=== PATIENT | male | born 1950 | race African-American/Black ===

== ENCOUNTER 2019-09-19 09:35 | Emergency (ER) | payer OTHER, BC ==
[~2019-09-19] VITALS: Ht 177.8 cm; Wt 87.1 kg
[2019-09-19 09:40] VITALS: BP_SYST 135
--- NOTE | 2019-09-19 09:40 | NUR ---
Placed in room 4 . Placed on labor relations director, blood pressure machine and pulse oximeter. To gown for exam. Side rails up. Report given to JANICE Gonzalez and JANICE Adams.
[2019-09-19] MEDS ORDERED: NACL 0.9% 1,000 ML IV ONE (09:42)
--- NOTE | 2019-09-19 09:53 | NUR ---
ER at bedside examining patient.
--- NOTE | 2019-09-19 10:00 | NUR ---
Pt came to ER with c/o of difficulty swallowing, stated food is slow to go down. He has not choked, vomited or had any other complaints at this time
--- NOTE | 2019-09-19 10:20 | NUR ---
Medicated per MD orders. IVF infusing with no s/s of infiltration at this time. Will cont to monitor
--- NOTE | 2019-09-19 10:20 | NUR ---
20 gauge angiocath placed to R AC. Use of asceptic technique. Opsite placed over site. Blood return noted. Blood for lab drawn from site. Flushed with 10 cc of normal saline. No evidence of infiltration noted. Patient tolerated well.
[2019-09-19 10:30] LABS: BASOPHILS # (AUTO) 0.1 K/uL (0.0-0.2); BASOPHILS % (AUTO) 1.2 % (0.0-2.0); EOSINOPHILS # (AUTO) 0.4 K/uL (0.0-0.4); EOSINOPHILS % (AUTO) 7.3 % (0.0-4.0); HEMATOCRIT 32.9 % (36-54); LYMPHOCYTES # (AUTO) 0.8 K/uL (1.0-5.5); LYMPHOCYTES % (AUTO) 16.1 % (20.5-51.5); MEAN CORPUSCULAR HEMOGLOBIN 28 pg (27-31); MEAN CORPUSCULAR HGB CONC 33 % (32-36); MEAN CORPUSCULAR VOLUME 83 fL (79.0-98.0); MONOCYTES # (AUTO) 0.6 K/uL (0.0-1.0); MONOCYTES % (AUTO) 13.3 % (1.7-9.3); NEUTROPHILS % (AUTO) 62.1 % (40.0-70.0); PLATELET COUNT (AUTO) 197 K/uL (130-430); RED BLOOD CELL COUNT(AUTO) 3.97 MIL/uL (4.2-6.2); RED CELL DISTRIBUTION WIDTH 15.9 % (9.0-15.0); WHITE BLOOD COUNT (AUTO) 4.8 K/uL (4.8-10.8)
[2019-09-19 10:39] LABS: BILIRUBIN,URINE NEGATIVE (NEGATIVE); BLOOD, URINE NEGATIVE (NEGATIVE); CLARITY/URINE CLEAR (CLEAR); COLOR,URINE YELLOW (YELLOW); GLUCOSE,URINE NEGATIVE (NEGATIVE); KETONES,URINE NEGATIVE (NEGATIVE); LEUKOCYTE ESTERASE ,URINE TRACE (NEGATIVE); NITRITE, URINE NEGATIVE (NEGATIVE); PROTEIN URINE NEGATIVE (NEGATIVE); UROBILINOGEN,URINE 0.2 (0.2-1.0)
[2019-09-19 10:48] LABS: ANION GAP 7 (5-15); CALCIUM 8.5 mg/dL (8.4-11.0); CHLORIDE 104 mmol/L (98-107); CREATININE 1.21 mg/dL (0.55-1.30); GLUCOSE 86 mg/dL (70-99); POTASSIUM 4.1 mmol/L (3.5-5.1); SODIUM SERUM 139 mmol/L (136-145); UREA NITROGEN, BLOOD 24 mg/dL (8-21)
[2019-09-19 10:55] LABS: ALANINE AMINOTRANSFERASE 27 U/L (12-78); ALBUMIN 3.5 g/dL (3.4-4.8); AMYLASE 90 U/L (0-100); ASPARTATE AMINOTRANSFERASE 25 U/L (10-37); LIPASE 220 U/L (73-393); TOTAL BILIRUBIN 0.3 mg/dL (0.0-1.0)
[2019-09-19 11:07] LABS: BARBITURATE, URINE NEGATIVE (NEG <=200); BENZODIAZEPINE, URINE NEGATIVE (NEG <=150); CANNABINOID, URINE NEGATIVE (NEG <=50); COCAINE, URINE NEGATIVE (NEG <=150); METHAMPHETAMINES SCREEN,URINE NEGATIVE (NEG <=500); OPIATE, URINE NEGATIVE (NEG <=100); PHENCYCLIDINE SCREEN,URINE NEGATIVE (NEG <=25); UR TRICYCLIC ANTIDEPRESSANTS NEGATIVE (NEG <=300); URINE AMPHETAMINE NEGATIVE (NEG <=500); URINE METHADONE NEGATIVE (NEG <=200); URINE OXYCODONE SCREEN NEGATIVE (NEG <=100); URINE PROPOXYPHENE SCREEN NEGATIVE (NEG <=300)
[2019-09-19 11:45] LABS: BACTERIA,URINE RARE /HPF (None Seen); RBC,URINE 0-3 /HPF (0-3); WBC,URINE 0-3 /HPF (0-3)
--- NOTE | 2019-09-19 12:01 | NUR ---
pt is resting in bed no c/o at the moment
[2019-09-19 12:43] LABS: CHOLESTEROL 161 mg/dL (<200); HDL CHOLESTEROL 65 mg/dL (>45); LDL CHOLESTEROL 74 mg/dL (<100); TRIGLYCERIDES 95 mg/dL (30-150)
[2019-09-19 12:47] LABS: CHOL/HDL RATIO 2.5 (>4.5)
--- NOTE | 2019-09-19 13:05 | NUR ---
swallow eval Pt was able to swallow liquids and soft solids w/out any difficulty. Pt did not express and problems w/ difficulty swallowing, regurgitation, or chocking.
[2019-09-19 14:06] VITALS: BP_SYST 142
== END 2019-09-19 14:06 | disposition home or self-care (01) ==
LOC: SED 09:35
DX: K21.9 Gastro-esophageal reflux disease without esophagitis (principal); R13.10 Dysphagia, unspecified; I10 Essential (primary) hypertension; I50.9 Heart failure, unspecified; J44.9 Chronic obstructive pulmonary disease, unspecified
CPT/HCPCS: 36415; 71045; 80053; 80061; 80307; 81000; 82150; 82550; 83690; 83880; 84484; 85025; 93005; 99284; J7030